=== PATIENT | male | born 1985 ===

== ENCOUNTER 2021-12-03 15:29 | Emergency (ER) | payer SELFPAY | END 2021-12-03 19:03 | disposition home or self-care (01) | LOC: MW.ED 15:29 | DX: S20.211A Contusion of right front wall of thorax, initial encounter (principal); W01.0XXA Fall on same level from slipping, tripping and stumbling without subsequent striking against object, initial encounter | CPT/HCPCS: 71101-26-RT; 71101-RT; 73660-26-T5; 73660-T5; 99283 ==